=== PATIENT | female | born 1970 | race Caucasian/White ===

== ENCOUNTER 2018-03-06 15:54 | Outpatient (CLI) | payer BC | END 2018-03-06 15:55 | disposition home or self-care (01) | LOC: BICMAMMO 15:54 | PROVIDERS: ATTEND Student in an Organized Health Care Education/Training Program | DX: Z12.31 Encounter for screening mammogram for malignant neoplasm of breast (principal); R92.1 Mammographic calcification found on diagnostic imaging of breast | CPT/HCPCS: 77063; 77067 ==

== ENCOUNTER 2018-04-02 16:40 | Outpatient (CLI) | payer BC | END 2018-04-02 16:41 | disposition home or self-care (01) | LOC: BICRAD 16:40 | PROVIDERS: ATTEND Internal Medicine Rheumatology | DX: M46.1 Sacroiliitis, not elsewhere classified (principal); M47.897 Other spondylosis, lumbosacral region | CPT/HCPCS: 72120 ==

== ENCOUNTER 2018-06-25 15:17 | Outpatient (CLI) | payer BC ==
--- NOTE | 2018-06-25 17:29 | MRI ---
MRI LUMBAR SPINE 06/25/18 PROVIDED CLINICAL HISTORY: Back pain. FINDINGS: Five lumbar vertebral bodies are demonstrated on radiographs of 04/02/18. Lumbar alignment appears normal. Vertebral body heights appear preserved. No focal concerning regiona l marrow signal abnormality is evident. The conus medullaris is normal in signal and terminates at an appropriate level. The visualized extraspinal soft tissues demonstrate no significant abnormality. At L1-2, there is no significant central canal or foraminal narrowing apparent. At L2-3, there is no significant central canal or neural foraminal narrowing apparent. At L3-4, there is mild bilateral facet arthritis. There is no significant central canal or foraminal narrowing apparent. At L4-5, there is mild disc space height loss and disc desiccation. There is a broad based disc bulge . There is bilateral facet arthritis. There is no significant central canal or foraminal narrowing ap parent. At L5-S1, there is bilateral facet arthritis. There is a mild broad based disc bulge. There is no sig nificant central canal or foraminal narrowing apparent. IMPRESSION: Lower lumbar disc and facet degenerative change as above. POS: OFF
== END 2018-06-25 15:18 | disposition home or self-care (01) ==
LOC: BICMRI 15:17
PROVIDERS: ATTEND Specialist
DX: M43.17 Spondylolisthesis, lumbosacral region (principal); M47.816 Spondylosis without myelopathy or radiculopathy, lumbar region
CPT/HCPCS: 72148

== ENCOUNTER 2018-08-08 07:34 | Outpatient (CLI) | payer BC ==
--- NOTE | 2018-08-08 09:16 | MRI ---
MRI THORACIC SPINE NONCONTRAST: DATE: 08-08-18 History: 47-year-old female with M54.14, thoracic radiculitis. Mid back pain and left upper extremity and left lower extremity hypesthesia, (numbness). FINDINGS: Vertebral body heights are maintained. Bone marrow signal is normal. Alignment is normal. The thoraci c spinal cord is normal in size and signal. No syrinx. No high grade central spinal canal stenosis, h igh grade neural foraminal stenosis, cord impingement, or kim nerve root impingement, identified at any level. Perivertebral spaces are unremarkable. Minimal discogenic degenerative changes at a few l evels, including T10-11 and T3-4. No significant interval change compared to 16. IMPRESSION: Essentially normal. POS: CHARY
== END 2018-08-08 07:35 | disposition home or self-care (01) ==
LOC: BICMRI 07:34
PROVIDERS: ATTEND Specialist
DX: M54.14 Radiculopathy, thoracic region (principal)
CPT/HCPCS: 72146

== ENCOUNTER 2018-09-11 15:31 | Outpatient (CLI) | payer BC ==
--- NOTE | 2018-09-11 16:46 | MRI ---
MRI CERVICAL SPINE 09/11/18 HISTORY: Cervical radiculopathy, M54.12. Multiplanar and multisequence noncontrast enhanced MRI images cervical spine obtained. The spinal cord is unremarkable with no evidence of cord masses or lesions. C1-2, C2-3: Unremarkable. C3-4: Unremarkable. C4-5: Unremarkable. C5-6: Disc desiccation seen. There is a broad based disc osteophyte complex centrally and in the left C5-6 lateral recess, minimally but not significantly compressing the thecal sac. The neural foramen demonstrate minimal left C5-6 neural foraminal narrowing. The right neural foramen is patent. C6-7: There is broad based disc osteophyte complex centrally and in the right paracentral region mini kale but not significantly compressing the thecal sac. The neural foramen are patent. C7-T1: Unremarkable. IMPRESSION: C5-6 and C6-7 central disc osteophyte complexes with some left C5-6 and C6-7 neural foraminal narrowi ng. POS: CHARY
== END 2018-09-11 15:32 | disposition home or self-care (01) ==
LOC: TBSIIMAG 15:31
PROVIDERS: ATTEND Neurological Surgery
DX: M54.12 Radiculopathy, cervical region (principal); M25.78 Osteophyte, vertebrae; N88.2 Stricture and stenosis of cervix uteri; M06.4 Inflammatory polyarthropathy
CPT/HCPCS: 72141

== ENCOUNTER 2018-10-23 08:32 | Day surgery (SDC) | payer BC ==
[2018-10-18 16:51] VITALS: BMI 26.7
--- NOTE | 2018-10-23 07:08 | HP ---
HISTORY OF PRESENT ILLNESS: Ms. Parks is a 47-year-old woman here for evaluation of both neck and low back complaints, but at the moment, her neck is more significant, namely bilateral neck, shoulder, and scapular pain as well as some bilateral numbness in the bilateral upper extremities, mostly in a C6 fashion, at times down to the hands. She has treated this in the past with conservative therapy and has reached a point where she would like to discuss possible surgery. PAST MEDICAL HISTORY: Significant for chronic pain syndrome, hypothyroidism, migraine headaches, anxiety, and osteoarthritis. CURRENT MEDICATIONS: 1. Lexapro. 2. Methotrexate. 3. Plaquenil. 4. Folic acid. 5. Vyvanse. 6. Tramadol. 7. Levoxyl. 8. Vitamin D. ALLERGIES: TO SULFA MEDICATIONS. PHYSICAL EXAMINATION: GENERAL: The patient is alert and oriented x3. MUSCULOSKELETAL: Upper extremity motor exam is normal. Limited cervical range of motion. Reflexes equal and present bilaterally at the biceps tendon. ASSESSMENT: Dr. Forbes met with the patient, reviewed imaging, advocated for a C5-C6 anterior cervical discectomy and fusion. He explained to the patient the risks, benefits, and alternatives to the procedure. The patient expressed understanding and elected to move forward with surgery as discussed. I do believe the patient is mentally competent and capable of making medical decisions for herself. We will move forward with surgery as planned. Job ID: [id number]
[2018-10-23] MEDS ORDERED: Thrombin 5000 UNITS/5 ML VIAL ONE (08:40)
[2018-10-23] MEDS ORDERED: Fentanyl 100 MCG/2 ML VIAL ONE ×2 (08:58→11:57)
--- NOTE | 2018-10-23 11:15 | OP ---
DATE OF PROCEDURE: 10/23/2018 WIRE DRAWING MACHINE OPERATOR: Torres Mary PA-C. INDICATION: Pain. DIAGNOSES: Cervical degenerative disk disease and cervical radiculopathy. PROCEDURES PERFORMED: Anterior cervical diskectomy and fusion C5-C6. ANESTHESIA: General. DESCRIPTION OF PROCEDURE: The patient was brought into the operating room and placed under general anesthesia. She was placed on table in supine position. A transverse incision was planned over the lateral aspect of the neck on the right. After prepping and draping and after appropriate operative pause, the incision was created. The soft tissues were swept away from midline. The platysma muscle was identified and incised. A blunt tissue plane anterior to the sternocleidomastoid muscle was used to gain access to the prevertebral space. After identifying the appropriate level with C-arm fluoroscopy, an annulotomy was performed at C5-C6 disk space. All disk material as well as anterior and posterior osteophytes were removed. After complete decompression, a 6 mm lordotic PEEK cage packed with allograft and autograft material was placed in the interbody space. An anterior cervical plate was then fashioned to the front of spine and secured with a total of 4 fixed screws. Midline lateral structures were inspected and found to be free from significant trauma. The wound was irrigated. Hemostasis was maintained throughout. The wound was then closed in anatomic layers and a pressure dressing was applied. There were no known procedural complications. Job ID: [id number]
[2018-10-23] MEDS ORDERED: Lidocaine 1% PF 5 ML VIAL ONE (13:47)
[2018-10-23] MEDS ORDERED: PHENYLEPHRINE-NS 100 MCG/ML 10 ML SYRINGE ONE (13:47)
[2018-10-23] MEDS ORDERED: Ondansetron PF 4 MG/2 ML Vial ONE (13:47)
[2018-10-23] MEDS ORDERED: Dexamethasone 20 MG/5 ML VIAL ONE (13:47)
[2018-10-23] MEDS ORDERED: Ketorolac Tromethamine 30 MG/ML VIAL ONE (13:47)
[2018-10-23] MEDS ORDERED: Rocuronium Bromide 10 MG/ML (10ML VIAL) ONE (13:47)
[2018-10-23] MEDS ORDERED: PROPOFOL 200 MG/20 ML VIAL ONE (13:47)
[2018-10-23] MEDS ORDERED: Glycopyrrolate 0.2 MG/ML 5 ML SYRINGE ONE (13:47)
== END 2018-10-23 14:20 | disposition home or self-care (01) ==
LOC: SDC 08:32
PROVIDERS: ATTEND Neurological Surgery
PROC: 0RT30ZZ Resection of Cervical Vertebral Disc, Open Approach (ICD-10-PCS; principal; 2018-10-23)
PROC: 0RG10A0 Fusion of Cervical Vertebral Joint with Interbody Fusion Device, Anterior Approach, Anterior Column, Open Approach (ICD-10-PCS; principal; 2018-10-23)
DX: M50.122 Cervical disc disorder at C5-C6 level with radiculopathy (principal); G89.4 Chronic pain syndrome; E03.9 Hypothyroidism, unspecified; G43.909 Migraine, unspecified, not intractable, without status migrainosus; F41.9 Anxiety disorder, unspecified; F32.9 Major depressive disorder, single episode, unspecified; M06.9 Rheumatoid arthritis, unspecified; M19.90 Unspecified osteoarthritis, unspecified site; Z79.899 Other long term (current) drug therapy; Z88.2 Allergy status to sulfonamides
CPT/HCPCS: 76000; C1768; C1776; J1100; J1885; J2001; J2405; J2704; J3010

== ENCOUNTER 2019-06-06 15:42 | Outpatient (CLI) | payer BC ==
--- NOTE | 2019-06-06 16:31 | MMO ---
Bilateral MAMMO Bilat Screen DDI+DILEEP. CLINICAL HISTORY: Patient is 48 years old and is seen for screening. The patient has no family history of breast cancer. The patient has no personal history of cancer. VIEWS: The views performed were: bilateral craniocaudal with tomosynthesis and bilateral mediolateral oblique with tomosynthesis. FILMS COMPARED: The present examination has been compared to prior imaging studies performed at [facility] on 07/23/2014, 09/08/2015, 10/04/2016 and 03/06/2018. This study has been interpreted with the assistance of computer-aided detection. MAMMOGRAM FINDINGS: There are scattered fibroglandular densities. There are no suspicious masses, suspicious calcifications, or new areas of architectural distortion. IMPRESSION: THERE IS NO MAMMOGRAPHIC EVIDENCE OF MALIGNANCY. A ROUTINE FOLLOW-UP MAMMOGRAM IN 1 YEAR IS RECOMMENDED. THE RESULTS OF THIS EXAM WERE SENT TO THE PATIENT. ACR BI-RADS Category 1 - Negative MAMMOGRAPHY NOTE: 1. A negative mammogram report should not delay a biopsy if a dominant of clinically suspicious mass is present. 2. Approximately 10% to 15% of breast cancers are not detected by mammography. 3. Adenosis and dense breasts may obscure an underlying neoplasm. Reported by: MACKENZIE PALACIOS MD Electonically Signed: [id number]
== END 2019-06-06 15:43 | disposition home or self-care (01) ==
LOC: BICMAMMO 15:42
PROVIDERS: ATTEND Student in an Organized Health Care Education/Training Program
DX: Z12.31 Encounter for screening mammogram for malignant neoplasm of breast (principal)
CPT/HCPCS: 77063; 77067

== ENCOUNTER 2020-07-21 15:31 | Outpatient (CLI) | payer BC ==
--- NOTE | 2020-07-21 16:02 | RAD ---
Right knee 2 views: 07/21/2020 COMPARISON: None HISTORY: Bilateral primary osteoarthritis of the knee FINDINGS: Minimal posterior patellar osteophyte formation. No knee joint effusion. Mild medial compar tment narrowing. There is mild osteophyte formation involving the medial femoral condyle and medial tibial plateau. IMPRESSION: Degenerative joint disease. No acute osseous abnormality.
--- NOTE | 2020-07-21 16:37 | RAD ---
XR Knee Lt 2 View: 07/21/2020 3:35 PM CLINICAL INDICATION: Left knee osteoarthrosis COMPARISON: None. FINDINGS: Bones: No acute fracture is demonstrated. Joints: There are mild osteophytes affecting all major compartments of the left knee. There is mild j oint capsular distention. Soft Tissue: No acute abnormality.. IMPRESSION: Mild osteoarthrosis and mild joint capsular distention.
== END 2020-07-21 15:32 | disposition home or self-care (01) ==
LOC: BICRAD 15:31
PROVIDERS: ATTEND Internal Medicine Rheumatology
DX: M17.0 Bilateral primary osteoarthritis of knee (principal)

== ENCOUNTER 2023-06-15 07:51 | Outpatient (CLI) | payer BC | END 2023-06-15 07:52 | disposition home or self-care (01) | LOC: BICRAD 07:51 | PROVIDERS: ATTEND Neurological Surgery | DX: M47.26 Other spondylosis with radiculopathy, lumbar region (principal); Z98.890 Other specified postprocedural states | CPT/HCPCS: 72100 ==

== ENCOUNTER 2023-06-18 13:33 | Outpatient (CLI) | payer BC | END 2023-06-18 13:34 | disposition home or self-care (01) | LOC: SCSMRI 13:33 | PROVIDERS: ATTEND Neurological Surgery | DX: M51.16 Intervertebral disc disorders with radiculopathy, lumbar region (principal); M48.061 Spinal stenosis, lumbar region without neurogenic claudication; M71.38 Other bursal cyst, other site; M51.87 Other intervertebral disc disorders, lumbosacral region | CPT/HCPCS: 72158 ==

== ENCOUNTER 2023-07-17 15:41 | Outpatient (CLI) | payer BC | END 2023-07-17 15:42 | disposition home or self-care (01) | LOC: BICRAD 15:41 | PROVIDERS: ATTEND Specialist | DX: M43.16 Spondylolisthesis, lumbar region (principal); M51.16 Intervertebral disc disorders with radiculopathy, lumbar region; M47.26 Other spondylosis with radiculopathy, lumbar region; R93.7 Abnormal findings on diagnostic imaging of other parts of musculoskeletal system; Z98.1 Arthrodesis status | CPT/HCPCS: 72120 ==

== ENCOUNTER 2024-07-22 14:56 | Outpatient (CLI) | payer BC | END 2024-07-22 14:57 | disposition home or self-care (01) | LOC: SCSMRI 14:56 | PROVIDERS: ATTEND Nurse Practitioner Family | DX: M47.26 Other spondylosis with radiculopathy, lumbar region (principal); M47.815 Spondylosis without myelopathy or radiculopathy, thoracolumbar region; M47.817 Spondylosis without myelopathy or radiculopathy, lumbosacral region; Z98.890 Other specified postprocedural states | CPT/HCPCS: 72148 ==

== ENCOUNTER 2025-05-06 08:00 | Outpatient (CLI) | payer BC | END 2025-05-06 08:01 | disposition home or self-care (01) | LOC: BICRAD 08:00 | PROVIDERS: ATTEND Orthopaedic Surgery | DX: M54.2 Cervicalgia (principal); Z98.1 Arthrodesis status | CPT/HCPCS: 72040 ==

== ENCOUNTER 2025-07-07 08:10 | Outpatient (CLI) | payer BC | END 2025-07-07 08:11 | disposition home or self-care (01) | LOC: BICRAD 08:10 | PROVIDERS: ATTEND Orthopaedic Surgery | DX: M54.2 Cervicalgia (principal) | CPT/HCPCS: 72040 ==